=== PATIENT | female | born 2000 | race Hispanic/Latino ===

== ENCOUNTER 2022-08-24 18:39 | Emergency (ER) | payer OTHER ==
[~2022-08-24] VITALS: Ht 167.6 cm; Wt 54.4 kg
[2022-08-24 22:20] VITALS: BP 125/74
== END 2022-08-24 22:26 | disposition home or self-care (01) ==
LOC: EDH 18:39
DX: S93.492A Sprain of other ligament of left ankle, initial encounter (principal); X58.XXXA Exposure to other specified factors, initial encounter; Y93.89 Activity, other specified; Y92.89 Other specified places as the place of occurrence of the external cause; Y99.8 Other external cause status
CPT/HCPCS: 73610; 73620

== ENCOUNTER 2022-11-17 23:38 | Emergency (ER) | payer OTHER ==
[~2022-11-17] VITALS: Ht 162.6 cm; Wt 56.2 kg
[2022-11-17 23:39] VITALS: O2SAT 98
[2022-11-18 01:04] LABS: HEMATOCRIT 35.6 % (36-48); MEAN CORPUSCULAR HEMOGLOBIN 28.9 pg (27.0-33.0); MEAN CORPUSCULAR HGB CONC 34.3 g/dL (32.0-36.0); MEAN CORPUSCULAR VOLUME 84.4 fL (80-100); RED BLOOD CELL COUNT(AUTO) 4.22 MIL/uL (4.00-5.50); RED CELL DISTRIBUTION WIDTH 13.8 % (11.0-15.5); WHITE BLOOD COUNT (AUTO) 8.5 K/uL (4.8-10.8)
[2022-11-18 01:13] LABS: APPEARANCE,URINE CLOUDY (CLEAR); BILIRUBIN,URINE NEGATIVE (NEGATIVE); COLOR,URINE YELLOW (YELLOW); CREATININE 0.7 mg/dL (0.5-1.5); GLUCOSE, URINE (UA) NEGATIVE (NEGATIVE); KETONES,URINE 20 mg/dL (NEGATIVE); LEUKOCYTE ESTERASE ,URINE NEGATIVE Leu/uL (NEGATIVE); NITRATE,URINE NEGATIVE (NEGATIVE); OCCULT BLOOD,URINE LARGE (NEGATIVE); POTASSIUM 3.1 mmol/L (3.5-5.1); PROTEIN,URINE 30 mg/dL (NEGATIVE); UROBILINOGEN,URINE 0.2 mg/dL (0.2-1.0)
[2022-11-18 01:15] LABS: HCG,QUALITATIVE URINE POSITIVE (NEGATIVE)
[2022-11-18 01:16] LABS: ADD UA MICROSCOPIC YES
[2022-11-18 01:17] LABS: ALBUMIN 3.9 g/dL (3.5-5.0); BILIRUBIN,TOTAL 0.4 mg/dL (0.2-1.0); TOTAL PROTEIN, SERUM 7.7 g/dL (6.0-8.3)
[2022-11-18 01:18] LABS: MUCUS,URINE RARE LPF (None Seen); RBC,URINE TNTC /HPF (0-1); SQUAMOUS EPITHELIAL CELL,UR RARE /HPF (0-2)
[2022-11-18 02:16] VITALS: BP 122/92; PULSE 86; RESP 15
== END 2022-11-18 02:38 | disposition home or self-care (01) ==
LOC: EDH 23:38
DX: O20.0 Threatened abortion (principal); Z3A.01 Less than 8 weeks gestation of pregnancy; O99.330 Smoking (tobacco) complicating pregnancy, unspecified trimester; F17.200 Nicotine dependence, unspecified, uncomplicated
CPT/HCPCS: 36415; 80053; 81001; 81025; 84702; 85027

== ENCOUNTER 2023-05-09 17:07 | Emergency (ER) | payer MEDICAID, OTHER ==
[~2023-05-09] VITALS: Ht 160 cm; Wt 59.0 kg
[2023-05-09 19:39] LABS: APPEARANCE,URINE CLEAR (CLEAR); BILIRUBIN,URINE NEGATIVE (NEGATIVE); COLOR,URINE COLORLESS (YELLOW); GLUCOSE, URINE (UA) NEGATIVE (NEGATIVE); KETONES,URINE NEGATIVE (NEGATIVE); LEUKOCYTE ESTERASE ,URINE NEGATIVE Leu/uL (NEGATIVE); NITRATE,URINE NEGATIVE (NEGATIVE); OCCULT BLOOD,URINE LARGE (NEGATIVE); PH,URINE 5.5 (5.0-8.0); PROTEIN,URINE NEGATIVE (NEGATIVE); UROBILINOGEN,URINE 0.2 mg/dL (0.2-1.0)
[2023-05-09 19:40] LABS: HCG,QUALITATIVE URINE NEGATIVE (NEGATIVE)
[2023-05-09 19:43] LABS: ADD UA MICROSCOPIC YES
[2023-05-09 19:44] LABS: BACTERIA,URINE RARE /HPF (None Seen); SQUAMOUS EPITHELIAL CELL,UR FEW /HPF (0-2)
[2023-05-09] MEDS: CEFTRIAXONE 1G VIAL IM ONE (20:07)
[2023-05-09] MEDS: CEFTRIAXONE 1G VIAL ONE (20:08)
[2023-05-09] MEDS ORDERED: DOXY100C5 PO (21:05)
[2023-05-09] MEDS ORDERED: CLIN100S VG (21:07)
[2023-05-09] MEDS ORDERED: MUPI22OI2 TP (21:15)
[2023-05-09 21:40] VITALS: BP 124/76; PULSE 75; RESP 16; O2SAT 100
== END 2023-05-09 22:05 | disposition home or self-care (01) ==
LOC: EDH 17:07
DX: N76.2 Acute vulvitis (principal); Z20.2 Contact with and (suspected) exposure to infections with a predominantly sexual mode of transmission; F17.200 Nicotine dependence, unspecified, uncomplicated
CPT/HCPCS: 99284; 81001; 81025; 96372; J0696